=== PATIENT | female | born 2000 | race American Indian/Alaskan Native ===

== ENCOUNTER 2020-09-09 07:34 | Emergency (ER) | payer OTHER ==
[2020-09-09] MEDS ORDERED: ONDANSETRON 4 MG ODT TAB PO ONE (07:51)
--- NOTE | 2020-09-09 07:51 | Event Note ---
ED Screening Note Date of service: 09/09/20 Time: 07:50 ED Screening Note: Patient complains of sudden onset of generalized abdominal pain and nausea and vomiting today Denies past medical history Admits to smoking marijuana Diffuse tenderness of abdomen on exam This initial assessment/diagnostic orders/clinical plan/treatment(s) is/are subject to change based on patients health status, clinical progression and re- assessment by fellow clinical providers in the ED. Further treatment and workup at subsequent clinical providers discretion. Patient/guardian urged not to elope from the ED as their condition may be serious if not clinically assessed and managed. Initial orders include: Labs Zofran
[2020-09-09 07:52] VITALS: BP 104/62
[2020-09-09 08:42] LABS: Basophils # (Auto) 0.1 K/mm3 (0.0-0.1); Basophils % (Auto) 0.9 % (0.0-1.8); Eosinophils % (Auto) 0.1 % (0.0-4.3); Hematocrit 36.4 % (30.3-42.9); Hemoglobin 12.4 gm/dl (10.1-14.3); Lymphocytes # (Auto) 1.2 K/mm3 (1.2-5.4); Lymphocytes % (Auto) 13.7 % (13.4-35.0); Mean Corpuscular HGB Conc 34 % (30-34); Mean Corpuscular Volume 90 fl (79-97); Monocytes # (Auto) 0.4 K/mm3 (0.0-0.8); Monocytes % (Auto) 4.6 % (0.0-7.3); Platelet Count 186 K/mm3 (140-440); Red Blood Count 4.07 M/mm3 (3.65-5.03); Red Cell Distribution Width 13.5 % (13.2-15.2)
[2020-09-09 09:09] LABS: Alanine Aminotransferase 36 units/L (7-56); Albumin 4.7 g/dL (3.9-5); Blood Urea Nitrogen 8 mg/dL (7-17); Calcium 9.1 mg/dL (8.4-10.2); Hemolysis Index 13
[2020-09-09 09:13] LABS: BUN/Creatinine Ratio 11
--- NOTE | 2020-09-09 11:05 | Emergency Department Report ---
<CRISTINA KWON - Last Filed: 09/09/20 11:41> ED N/V/D HPI - General Chief complaint: Nausea/Vomiting/Diarrhea Stated complaint: VOMITING/DIZZY/WEAKNESS Time Seen by Provider: 09/09/20 07:50 Source: patient Mode of arrival: Wheelchair Limitations: No Limitations - History of Present Illness Initial comments: 20-year-old female presented to the ER today with complaints of nausea, vomiting and epigastric abdominal pain. Patient states that her symptoms started around 12 AM this morning. She states that she vomited "a lot" and emesis was mainly bilious. She denies any hematemesis or coffee-ground emesis. She reports loose stools but no diarrhea. She denies any fever or chills. She denies any UTI symptoms. She denies any associated chest pain or shortness of breath. She admits that she had a few shots last night around 7 PM and also smoked marijuana. She denies any other illicit drug use. Last menstrual cycle towards the end of July 2020. She denies any abdominal surgeries. Patient has been here for 3 hours and 34 minutes and reports that she is feeling much better after Zofran and her epigastric abdominal pain has now resolved. MD complaint: nausea, vomiting, abdominal pain -: Sudden (12am) - Related Data Previous Rx's Medication Instructions Recorded Last Taken Type Famotidine [Pepcid] 20 mg PO BID #30 tablet 09/09/20 Unknown Rx Ondansetron [Zofran Odt] 4 mg PO Q8HR PRN #12 tab.rapdis 09/09/20 Unknown Rx cephALEXin [Keflex] 500 mg PO Q8HR #21 cap 09/09/20 Unknown Rx Allergies Allergy/AdvReac Type Severity Reaction Status Date / Time No Known Allergies Allergy Unverified 09/09/20 07:48 ED Review of Systems Comment: All other systems reviewed and negative Constitutional: denies: chills, fever Eyes: denies: eye pain, eye discharge, vision change ENT: denies: ear pain, throat pain, dental pain, hearing loss, epistaxis, congestion Respiratory: denies: cough, shortness of breath, wheezing Cardiovascular: denies: chest pain, palpitations Gastrointestinal: abdominal pain, nausea, vomiting. denies: diarrhea, constipation, hematemesis, melena, hematochezia Genitourinary: denies: urgency, dysuria, discharge Musculoskeletal: denies: back pain, joint swelling, arthralgia Skin: denies: rash, lesions, change in color, change in hair/nails, pruritus Neurological: denies: headache, weakness, numbness, paresthesias, confusion, abnormal gait, vertigo Psychiatric: denies: anxiety, depression, auditory hallucinations, visual hallucinations, homicidal thoughts, suicidal thoughts Hematological/Lymphatic: denies: easy bleeding, easy bruising, swollen glands ED Past Medical Hx - Past Medical History Previous Medical History?: No - Surgical History Past Surgical History?: No - Social History Smoking Status: Never Smoker Substance Use Type: Marijuana - Medications Home Medications: Home Medications Medication Instructions Recorded Confirmed Last Taken Type Famotidine [Pepcid] 20 mg PO BID #30 tablet 09/09/20 Unknown Rx Ondansetron [Zofran Odt] 4 mg PO Q8HR PRN #12 tab.rapdis 09/09/20 Unknown Rx cephALEXin [Keflex] 500 mg PO Q8HR #21 cap 09/09/20 Unknown Rx ED Physical Exam - General Limitations: No Limitations General appearance: alert, in no apparent distress - Head Head exam: Present: atraumatic, normocephalic, normal inspection - Eye Eye exam: Present: normal appearance, PERRL, EOMI Pupils: Present: normal accommodation - ENT ENT exam: Present: normal exam, mucous membranes moist - Neck Neck exam: Present: normal inspection, full ROM - Respiratory Respiratory exam: Present: normal lung sounds bilaterally. Absent: respiratory distress, wheezes, rales, rhonchi - Cardiovascular Cardiovascular Exam: Present: regular rate, normal rhythm, normal heart sounds - GI/Abdominal GI/Abdominal exam: Present: soft. Absent: distended, tenderness, guarding, rebound - Neurological Exam Neurological exam: Present: alert, oriented X3, CN II-XII intact, normal gait - Psychiatric Psychiatric exam: Present: normal affect, normal mood - Skin Skin exam: Present: intact ED Medical Decision Making - Lab Data Result diagrams: 09/09/20 08:17 09/09/20 08:17 - Medical Decision Making 1142: Patient reports feeling much better after receiving Zofran upon arrival to the ER. She has a soft nontender abdominal exam. She is not toxic or ill- appearing, and is currently not in any acute distress and and there is no signs of significant dehydration on exam. Labs reviewed, and is unremarkable except for possible UTI. Urine culture is pending. Based on patient's history, physical exam and current condition acute appendicitis, bowel obstruction, acute cholecystitis, bowel perforation, major GI bleed, severe diverticulitis, abdominal aortic aneurysm, mesenteric ischemia, volvulus, significant metabolic abnormality, significant dehydration, sepsis or other significant pathology to warrant further testing, continued ED treatment, admission or surgical evaluation at this point. Discussed lab results, suspected diagnosis and treatment plan with patient. Patient expressed understanding of instructions and agree with plan. Patient was stable at time of discharge. ED Disposition Clinical Impression: Nausea & vomiting, UTI (urinary tract infection) Disposition: TO HOME OR SELFCARE Is pt being admited?: No Does the pt Need Aspirin: No Condition: Stable Instructions: Gastritis, Adult, [id number], Urinary Tract Infection, Adult, Nausea and Vomiting, Adult Additional Instructions: Take the Zofran as prescribed. Take the Pepcid as prescribed. Take the antib iotics as prescribed to completion to help with the UTI. Recommend that you drink lots of water. I would avoid any alcohol, marijuana use, spicy foods, acidic foods, NSAIDs for at least 1 to 2 weeks. Follow-up with the primary care doctor listed on your discharge instructions. Return to the ER if your symptoms changes or worsens in any way. Prescriptions: cephALEXin [Keflex] 500 mg PO Q8HR #21 cap Famotidine [Pepcid] 20 mg PO BID #30 tablet Ondansetron [Zofran Odt] 4 mg PO Q8HR PRN #12 tab.rapdis PRN Reason: Nausea Referrals: BOBBY DIXON MD [Staff Physician] - 3-5 Days Forms: Work/School Release Form(ED) Time of Disposition: 11:38 <SHEKHAR KIMBALL - Last Filed: 09/09/20 18:36> ED Review of Systems ROS: Stated complaint: VOMITING/DIZZY/WEAKNESS Other details as noted in HPI ED Course Vital Signs 09/09/20 07:49 Pulse Rate 78 Respiratory 20 Rate Blood Pressure 104/62 O2 Sat by Pulse 100 Oximetry ED Medical Decision Making - Lab Data Result diagrams: 09/09/20 08:17 09/09/20 08:17 Critical care attestation.: If time is entered above; I have spent that time in minutes in the direct care of this critically ill patient, excluding procedure time. ED Disposition Is pt being admited?: No Does the pt Need Aspirin: No
[2020-09-09 11:29] LABS: Bacteria,Urine 1+ /HPF (Negative); Bilirubin,Urine NEG (Negative); Blood,Urine NEG (Negative); Color,Urine Yellow (Yellow); Mucus,Urine 3+ /HPF; Urobilinogen,Urine < 2.0 mg/dL (<2.0)
== END 2020-09-09 11:44 | disposition home or self-care (01) ==
LOC: EDBD → ED 07:34
DX: N39.0 Urinary tract infection, site not specified (principal); R11.2 Nausea with vomiting, unspecified; F12.10 Cannabis abuse, uncomplicated; Z79.899 Other long term (current) drug therapy
CPT/HCPCS: 36415; 80053; 81001; 83690; 84703; 85025; 87086; Q0162